=== PATIENT | male | born 1980 | race Caucasian/White ===

== ENCOUNTER 2016-04-21 22:40 | Emergency (ER) | payer BC, OTHER ==
[2016-04-22] MEDS ORDERED: CLINDAMYCIN HCL 150 MG CAPSULE PO ONE (02:40)
--- NOTE | 2016-04-22 02:45 | ER Document Report ---
ED General - General Chief Complaint: Facial Swelling Stated Complaint: FACIAL SWELLING Notes: Patient is a 35-year-old male presents with complaints of some sensation of swelling to the just below the right jaw. No pain in the teeth. No fevers. No vomiting. No difficulty breathing. No difficulty opening his jaw. He's never had this happen before. His nose a lymph nodes anywhere else on his body. He has no chronic medical problems. He takes no medications. No other complaints at this time. TRAVEL OUTSIDE OF THE [place] IN LAST 30 DAYS: No - Related Data Allergies/Adverse Reactions: Penicillins Allergy (Verified 04/21/16 22:53) Past Medical History - Social History Smoking Status: Never Smoker Frequency of alcohol use: None Drug Abuse: None Family History: Reviewed & Not Pertinent Patient has suicidal ideation: No Patient has homicidal ideation: No Review of Systems - Review of Systems Notes: My Normal Review Basic REVIEW OF SYSTEMS: CONSTITUTIONAL : Denies fever, chills, or sweats. Denies recent illness. EENT: Denies eye, ear, throat, or mouth pain or symptoms. Denies nasal or sinus congestion.. RESPIRATORY: Denies cough, cold, or chest congestion. Denies shortness of breath, difficulty breathing, or wheezing. GASTROINTESTINAL: Denies abdominal pain. Denies nausea, vomiting, or diarrhea. Denies constipation. Last BM: MUSCULOSKELETAL: Denies neck or back pain or joint pain or swelling. SKIN: Denies rash or skin lesions. LYMPHATIC: Swelling below the right jaw. NEUROLOGICAL: Denies altered mental status or loss of consciousness. Denies headache. Denies weakness or paralysis or loss of use of either side. Denies problems with gait or speech. Denies sensory or motor loss. ALL OTHER SYSTEMS REVIEWED AND NEGATIVE. Physical Exam - Vital signs Vitals: Temp Pulse Resp BP Pulse Ox 98.1 F 117 H 20 179/110 H 96 04/21/16 22:46 04/21/16 22:46 04/21/16 22:46 04/21/16 22:46 04/21/16 22:46 - Notes Notes: General Appearance: Well nourished, alert, cooperative, no acute distress, no obvious discomfort. Well-appearing. Vitals: reviewed, See vital signs table. Head: no swelling or tenderness to the head Eyes: PERRL, EOMI, Conjuctiva clear Mouth: No decreasd moisture. Patient is able open and close his jaw without any difficulties. Throat: No tonsillar inflammation, No airway obstruction, patient has easily palpable lymph nodes below the right mandible. No significant amount of swelling. Neck: Supple, no neck tenderness, No thyromegaly Skin: warm, dry, appropriate color, no rash Neuro: speech clear, oriented x 3, normal affect, responds appropriately to questions. Course - Vital Signs Vital signs: Temp Pulse Resp BP Pulse Ox 99.1 F 114 H 18 153/102 H 95 04/22/16 02:02 04/22/16 02:02 04/22/16 02:02 04/22/16 02:02 04/22/16 02:02 - Transfer of Care Notes: 04/22/16 02:43 The area that the patient feels his swollen neck she does feels like enlarged lymph nodes below the right mandible. Correlate with possible tooth infection. Denies any dental fractures or dental abscesses on exam oral exam. I will place him on clindamycin. She has no signs of Noble angina. He has no actual swelling currently. No enlargement of see his lymph nodes themselves. He's able open and close his jaw without difficulty. He looks well. I did feel the axillary and clavicle areas. I did not feel any further lymphadenopathy. I did inform the patient that if the lymph node enlargement does not improve after antibiotics must return to ER follow-up with primary care doctor for evaluation. I informed him this is very important and sometimes will start enlargement, although rare, could represent underlying cancer a foam a. Patient is understanding with this and does agree with the plan. He's encouraged return to ER immediately if he has increased swelling, fevers, any difficulty breathing, or any difficulty opening or closing the jaw. Patient agrees with plan will be discharged home. Dictation of this chart was performed using voice recognition software; therefore, there may be some unintended grammatical errors. Discharge - Discharge Clinical Impression: Lymphadenopathy of head and neck region Condition: Good Disposition: HOME, SELF-CARE Additional Instructions: You have palpable enlarged lymph nodes on the right side her jaw. This sometimes can indicate a tooth infection. We'll place you on antibiotics. If you still have any swelling after the antibiotic course is complete you must return to ER or follow up with another doctor for reevaluation. Please return to ER immediately if you have difficulty breathing, difficulty swallowing, fevers, or increased swelling. Prescriptions: Clindamycin HCl 300 mg PO ASDIR #56 capsule Forms: Return to Work
[2016-04-22 03:01] VITALS: BP 170/110
== END 2016-04-22 02:58 | disposition home or self-care (01) ==
LOC: ER 22:40
DX: R59.0 Localized enlarged lymph nodes (principal); Z88.0 Allergy status to penicillin
CPT/HCPCS: 99283

== ENCOUNTER → 2016-09-28 | Outpatient (CLI) | payer SELFPAY ==
[2016-09-28 13:35] LABS: ALBUMIN 3.7 g/dL (3.5-5.0); ANION GAP 11 (5-19); BLOOD UREA NITROGEN 13 mg/dL (7-20); CALCIUM 9.3 mg/dL (8.4-10.2); CARBON DIOXIDE 26 mmol/L (22-30); CHLORIDE 100 mmol/L (98-107); CREATININE RESULT 0.73 mg/dL (0.52-1.25); GLUCOSE 234 mg/dL (75-110); POTASSIUM 4.5 mmol/L (3.6-5.0); SODIUM 137.1 mmol/L (137-145)
[2016-09-28 15:11] LABS: URINE CREATININE 37.7 mg/dL (24-392)
[2016-09-28 15:17] LABS: CREATININE 0.73 mg/dL (0.52-1.25)
[2016-09-28 15:26] LABS: URINE PROTEIN 237.7 mg/dL (<12)
[2016-09-29 16:39] LABS: A/G RATIO 0.8 (0.7-1.7); ALBUMIN 2 2.9 g/dL (2.9-4.4); ALPHA-1-GLOBULIN 2 0.2 g/dL (0.0-0.4); GAMMA GLOBULIN 1.1 g/dL (0.4-1.8); PROTEIN TOTAL SERUM 6.4 g/dL (6.0-8.5)
== END ==
LOC: OD 10:53
PROVIDERS: ATTEND Internal Medicine Nephrology
DX: R80.9 Proteinuria, unspecified (principal); E11.9 Type 2 diabetes mellitus without complications
CPT/HCPCS: 36415; 80048; 82040; 82575; 84156; 84165

== ENCOUNTER 2016-11-10 05:32 | Day surgery (SDC) | payer OTHER ==
[2016-11-10 05:56] LABS: HEMATOCRIT 41.4 % (37.9-51.0); HEMOGLOBIN 14.4 g/dL (13.5-17.0); HGB HCT DIFFERENCE 1.8; MEAN CORPUSCULAR HEMOGLOBIN 29.9 pg (27.0-33.4); MEAN CORPUSCULAR HGB CONC 34.9 g/dL (32.0-36.0); MEAN CORPUSCULAR VOLUME 86 fl (80-97); RED BLOOD COUNT 4.84 10^6/uL (4.35-5.55); RED CELL DISTRIBUTION WIDTH 13.1 % (11.5-14.0); WHITE BLOOD COUNT 12.2 10^3/uL (4.0-10.5)
[2016-11-10 05:59] LABS: PROTHROMBIN TIME 12.5 SEC (11.4-15.4)
[2016-11-10 06:00] LABS: PARTIAL THROMBOPLASTIN TIME 29.4 SEC (23.5-35.8)
[2016-11-10 06:10] LABS: BLOOD UREA NITROGEN 16 mg/dL (7-20); CREATININE RESULT 0.71 mg/dL (0.52-1.25)
[2016-11-10] MEDS ORDERED: FENTANYL CITRATE INJ/PF 100 MCG/2 ML AMPUL ONE (08:31)
[2016-11-10] MEDS ORDERED: MIDAZOLAM 2 MG/2 ML INJ ONE (08:31)
--- NOTE | 2016-11-10 10:38 | RADIOLOGY REPORT (SQ) ---
EXAM DESCRIPTION: CT BIOPSY RENAL; CT NEEDLE PLACEMENT COMPLETED DATE/TIME: 11/10/2016 9:18 am REASON FOR STUDY: PROTEINURIA; PROTEINURIA, RENAL BIOPSY R80.9 COMPARISON: None. RADIATION DOSE: Up-to-date CT equipment and radiation dose reduction techniques were employed. CTDIv ol: 4.0 - 20.2 mGy. DLP: 956 mGy-cm. mGy. LIMITATIONS: None. PROCEDURE: Procedure was discussed with the patient and the patient agreed to the procedure. Preliminary CT scanning to localize the biopsy site was performed. A site was marked on the right ki dney and time out was performed. Procedure was performed using CT fluoroscopy. Total exposure time: 4.8 seconds. IV sedation was administered and physician direction by the registered nurse using 1 milligrams of Ve rsed and 50 micrograms of fentanyl. Physiologic monitoring was provided before, during, and after sed ation. The total sedation time was 30 minutes. Documentation face to face time, the performing proceduralist, spent monitoring the patient: 15minute s. After sterile skin prep, local lidocaine for skin and deep tissue anesthesia, the right kidney was lo calized. A coaxial 18 gauge needle was used to obtain several cores of tissue from the right kidney. The biopsy tract was embolized with Gelfoam. All CT scanners at this facility use dose modulation, iterative reconstruction, and/or weight based d osing when appropriate to reduce radiation dose to as low as reasonably achievable (ALARA). [facility]: Dose Right [facility]: CareDose [facility]: Dose Right [facility]: Teradose 4D [facility]: Smart kwiry FINDINGS: There were no immediate complications. Pathology is pending at the time of dictation. IMPRESSION: CT GUIDED RIGHT KIDNEY CORTICAL BIOPSY. COMMENT: Patient medication list reviewed:Yes- Quality ID# [id number]:Eligible professional attests to docu menting in the medical record they obtained, updated, or reviewed the patient's current medications.. TECHNICAL DOCUMENTATION: JOB ID: [id number] Quality ID #[id number]: Final reports for procedures using fluoroscopy that document radiation exposure rola casimiro, or exposure time and number of fluorographic images (if radiation exposure indices are not avail able) Quality ID # [id number]: Final reports with documentation of one or more dose reduction techniques (e.g., Au tomated exposure control, adjustment of the mA and/or kV according to patient size, use of iterative reconstruction technique) 2010 [employer]- All Rights Reserved
--- NOTE | 2016-11-10 10:38 | RADIOLOGY REPORT (SQ) ---
EXAM DESCRIPTION: CT BIOPSY RENAL; CT NEEDLE PLACEMENT COMPLETED DATE/TIME: 11/10/2016 9:18 am REASON FOR STUDY: PROTEINURIA; PROTEINURIA, RENAL BIOPSY R80.9 COMPARISON: None. RADIATION DOSE: Up-to-date CT equipment and radiation dose reduction techniques were employed. CTDIv ol: 4.0 - 20.2 mGy. DLP: 956 mGy-cm. mGy. LIMITATIONS: None. PROCEDURE: Procedure was discussed with the patient and the patient agreed to the procedure. Preliminary CT scanning to localize the biopsy site was performed. A site was marked on the right ki dney and time out was performed. Procedure was performed using CT fluoroscopy. Total exposure time: 4.8 seconds. IV sedation was administered and physician direction by the registered nurse using 1 milligrams of Ve rsed and 50 micrograms of fentanyl. Physiologic monitoring was provided before, during, and after sed ation. The total sedation time was 30 minutes. Documentation face to face time, the performing proceduralist, spent monitoring the patient: 15minute s. After sterile skin prep, local lidocaine for skin and deep tissue anesthesia, the right kidney was lo calized. A coaxial 18 gauge needle was used to obtain several cores of tissue from the right kidney. The biopsy tract was embolized with Gelfoam. All CT scanners at this facility use dose modulation, iterative reconstruction, and/or weight based d osing when appropriate to reduce radiation dose to as low as reasonably achievable (ALARA). [facility]: Dose Right [facility]: CareDose [facility]: Dose Right [facility]: Teradose 4D [facility]: Smart CardStar FINDINGS: There were no immediate complications. Pathology is pending at the time of dictation. IMPRESSION: CT GUIDED RIGHT KIDNEY CORTICAL BIOPSY. COMMENT: Patient medication list reviewed:Yes- Quality ID# [id number]:Eligible professional attests to docu menting in the medical record they obtained, updated, or reviewed the patient's current medications.. TECHNICAL DOCUMENTATION: JOB ID: [id number] Quality ID #[id number]: Final reports for procedures using fluoroscopy that document radiation exposure rola casimiro, or exposure time and number of fluorographic images (if radiation exposure indices are not avail able) Quality ID # [id number]: Final reports with documentation of one or more dose reduction techniques (e.g., Au tomated exposure control, adjustment of the mA and/or kV according to patient size, use of iterative reconstruction technique) 2010 [employer]- All Rights Reserved
[2016-11-10 12:04] VITALS: BP 138/90
== END 2016-11-10 11:45 | disposition home or self-care (01) ==
LOC: RAD 05:32
PROVIDERS: ATTEND Internal Medicine Nephrology
PROC: 0TB33ZX Excision of Right Kidney Pelvis, Percutaneous Approach, Diagnostic (ICD-10-PCS; principal; 2016-11-10)
DX: I12.0 Hypertensive chronic kidney disease with stage 5 chronic kidney disease or end stage renal disease (principal); E11.22 Type 2 diabetes mellitus with diabetic chronic kidney disease; N18.6 End stage renal disease; R80.9 Proteinuria, unspecified; E78.5 Hyperlipidemia, unspecified; I10 Essential (primary) hypertension; Z79.4 Long term (current) use of insulin; Z79.82 Long term (current) use of aspirin; Z79.899 Other long term (current) drug therapy; Z88.0 Allergy status to penicillin
CPT/HCPCS: 36415; 84520; 82565; 82947; 85027; 85610; 85730; 88346; 88348 ×2; 88313 ×2; 77012; 50200; J2250; J3010

== ENCOUNTER 2018-02-10 20:01 | Emergency (ER) | payer OTHER ==
[2018-02-10] MEDS ORDERED: PIPERACILLIN/TAZOBACTAM 4.5 GM VIAL IV ONE (23:23)
[2018-02-10] MEDS ORDERED: VANCOMYCIN HCL INJ 1000 MG VIAL IV ONE (23:24)
[2018-02-10] MEDS ORDERED: HYDROMORPHONE HCL INJ/PF 2 MG/ML AMPULE IV ONE (23:35)
--- NOTE | 2018-02-10 23:39 | ER Document Report ---
ED General - General Chief Complaint: Testicular Pain Stated Complaint: FINGER PAIN Time Seen by Provider: 02/10/18 23:17 Notes: Patient is a 37-year-old male who presents with complaint of swelling of the testicle region. He says that he was told he had a yeast infection last week. He was given a dose of Diflucan. He noticed in the last 24 hours of his testicles have been swelling and he is having some increasing pain in his penile region. He says he cannot actually see his penis he does not know when the purulent drainage started from around the penis. He denies any fevers. Some nausea. No vomiting. No abdominal pain. No diarrhea. Patient's only other complaint is that he has a pustule on the pad of the index finger of the left hand. He said this is from where they checked his blood sugar urgent care a few days ago. No history of genital herpes. Patient has not been sexually active in several months and at that time was sexually monogamous with fiance. TRAVEL OUTSIDE OF THE [place] IN LAST 30 DAYS: No - Related Data Allergies/Adverse Reactions: Penicillins Allergy (Verified 04/21/16 22:53) Past Medical History - Social History Smoking Status: Never Smoker Chew tobacco use (# tins/day): No Frequency of alcohol use: None Drug Abuse: None Family History: Reviewed & Not Pertinent Patient has suicidal ideation: No Patient has homicidal ideation: No - Past Medical History Cardiac Medical History: Reports: Hx Hypertension Denies: Hx Coronary Artery Disease, Hx Heart Attack Pulmonary Medical History: Denies: Hx Asthma, Hx Bronchitis, Hx COPD, Hx Pneumonia Neurological Medical History: Denies: Hx Cerebrovascular Accident, Hx Seizures Renal/ Medical History: Denies: Hx Peritoneal Dialysis Musculoskeletal Medical History: Reports Hx Arthritis Past Surgical History: Reports: Hx Orthopedic Surgery - R Arm Review of Systems - Review of Systems Notes: My Normal Review Basic REVIEW OF SYSTEMS: CONSTITUTIONAL : Denies fever, chills, or sweats. Denies recent illness. RESPIRATORY: Denies cough, cold, or chest congestion. Denies shortness of breath, difficulty breathing, or wheezing. GASTROINTESTINAL: Denies abdominal pain. Denies nausea, vomiting, or diarrhea. GENITOURINARY: Denies difficulty urinating, painful urination, burning, frequency, or blood in urine. Complains of some swelling to testicular region. MUSCULOSKELETAL: Denies neck or back pain or joint pain or swelling. SKIN: Denies rash or skin lesions. NEUROLOGICAL: Denies altered mental status or loss of consciousness. ALL OTHER SYSTEMS REVIEWED AND NEGATIVE. Physical Exam - Vital signs Vitals: Temp Pulse Resp BP Pulse Ox 98.6 F 115 H 20 134/83 H 95 02/10/18 20:14 02/10/18 20:14 02/10/18 20:14 02/10/18 20:14 02/10/18 20:14 - Notes Notes: General Appearance: Well nourished, alert, cooperative, no acute distress, mild to moderate obvious discomfort. Vitals: reviewed, See vital signs table. Eyes: PERRL, EOMI, Conjuctiva clear Mouth: No decreasd moisture Lungs: No wheezing, No rales, No rhonci, No accessory muscle use, good air exchange bilaterally. Heart: Normal rate, Regular rythm, No murmur, no rub Abdomen: Normal BS, soft, No rigidity, No abdominal tenderness, No guarding, no rebound, no abdominal masses, no organomegaly genital: Patient has some redness and swelling to the scrotal region. His penile shaft is swollen and there is a large amount of skin breakdown with purulent drainage coming from the penile shaft itself. Glans is red and inflamed as well. Extremities: good pulses in all extremities, no swelling or tenderness in the extremities, no edema. Skin: warm, dry, appropriate color, no rash Neuro: speech clear, oriented x 3, normal affect, responds appropriately to questions. Course - Re-evaluation Re-evalutation: 02/10/18 23:40 Patient has what appears to be a scrotal cellulitis but also has infection involving the shaft of the penis and also to the glans. He purulent discharge. He has no crepitance or pain palpation to the pelvic region. I did call out general surgeon, Dr. Khan, who says that he is not qualified to do surgery in the genital region. He recommends transfer for urology. Only replacing lining obtaining blood work as well as give the patient IV antibiotics. I will call outside facilities to discuss possible transfer. I informed patient and plan is agreeable to it. Patient has penicillins in his allergy list however the patient says he had a rash when he was just a young child to penicillin. Since then he has had amoxicillin several times without any reaction. I therefore feel that Zosyn is appropriate. 02/11/18 00:42 I have called to [facility] transfer line. I got the voice messaging system to him and asked me to leave a message. I have left a message. If I do not hear back within 10 more minutes and I will call again. 02/11/18 00:53 [facility] call back and spoke with with ask about different patient. They are currently full and do not have any beds and have a long wait list. I therefore called [facility] and said they will call us back with urology. 02/11/18 01:[address] Dominguez, urologist at [facility], who agrees that the patient needs to be transferred and seen by him. He requested I speak with the hospitalist for excepting for transfer and then they will have the patient transferred for definitive treatment. I am waiting to hear back from the hospitalist at [facility]. 02/11/18 01:[address] speak with Dr. Villalta, hospitalist, who agrees to accept the patient. They said that they should have a bed sometime earlier today. I did not called [facility] as my coworker physician just tried to called [facility] about another urology patient and they were also full and on a long bed delay as well. This leaves us with [facility] says they will hopefully have a bed within the next 12 hours. I will continue to reevaluate the patient to make sure he does not have any spreading redness or swelling to the genital region. Patient's vital signs remained stable. His rate is currently 99. Blood pressure is 135/95. Is not septic or toxic appearing however the patient's exam was still very concerning and I feel that he would benefit more from my work quick urologic evaluation. He has purulent drainage coming from around the penile region. He still start having the redness spread from genital region. I called [facility] again and asked if they would just let me speak with urologist to see if I can get this patient faster help. The transfer center said they would contact the urologist and have him speak with me. 02/11/18 02:00 02/11/18 02:05 02/11/18 02:06 02/11/18 02:[address] Mcduffie, urologist at [facility], and explained to him my concern that the patient has worsening infection of the genitalia and that this could progress to him potentially losing his genitalia if not treated. He agrees that patient does need to be seen. He recommends obtaining a CT scan while awaiting bed for the patient be transferred. He also recommends I speak with the hospitalist as about being the primary locomotive switch operator for the patient. I am awaiting hear back from the hospitalist. 02/11/18 02:22 02/11/18 02:[address] Bonilla, hospitalist, who agrees to accept the patient for transfer. 02/11/18 03:29 [facility] has assigned us a bed. We are arranging transport for patient to go to [facility] for further treatment. 02/11/18 08:53 I did do a final evaluation right as transport team and arrived. Patient was feeling well and is not septic or toxic appearing. He is stable for transfer. Vital signs are stable. Blood pressure is normal. Dictation of this chart was performed using voice recognition software; therefore, there may be some unintended grammatical errors. - Vital Signs Vital signs: Temp Pulse Resp BP Pulse Ox 100.0 F 106 H 20 154/98 H 94 02/11/18 05:35 02/11/18 02:16 02/11/18 05:35 02/11/18 05:35 02/11/18 05:35 - Laboratory Result Diagrams: 02/10/18 23:40 02/10/18 23:40 Laboratory results interpreted by me: 02/10/18 02/10/18 23:40 23:40 WBC 14.2 H Hgb 13.0 L Hct 37.6 L Lymphocytes % 11.9 L Basophils % 2.1 H Absolute Neutrophils 11.0 H Absolute Basophils 0.3 H Sodium 131.8 L Potassium 3.3 L Chloride 91 L Glucose 294 H Discharge - Discharge Clinical Impression: Genital infection Condition: Stable Disposition: [facility] Referrals: AYANA MANZANARES, OPTICS ENGINEER [Primary Care Provider] - Follow up as needed
[2018-02-11 00:05] LABS: ABSOLUTE BASOPHILS # (AUTO) 0.3 10^3/uL (0.0-0.2); ABSOLUTE EOSINOPHILS # (AUTO) 0.1 10^3/uL (0.0-0.6); ABSOLUTE LYMPHOCYTES (AUTO) 1.7 10^3/uL (0.5-4.7); ABSOLUTE MONOCYTES (AUTO) 1.1 10^3/uL (0.1-1.4); BASOPHILS % (AUTO) 2.1 % (0-2); EOSINOPHILS % (AUTO) 0.5 % (0-6); HEMATOCRIT 37.6 % (37.9-51.0); LYMPHOCYTES % (AUTO) 11.9 % (13-45); MEAN CORPUSCULAR HEMOGLOBIN 29.4 pg (27.0-33.4); MEAN CORPUSCULAR HGB CONC 34.5 g/dL (32.0-36.0); MEAN CORPUSCULAR VOLUME 85 fl (80-97); MONOCYTES % (AUTO) 8.1 % (3-13); PLATELET COUNT 218 10^3/uL (150-450); RED BLOOD COUNT 4.42 10^6/uL (4.35-5.55); RED CELL DISTRIBUTION WIDTH 13.6 % (11.5-14.0); SEGMENTED NEUTROPHILS % (AUTO) 77.4 % (42-78); TOTAL CELLS COUNTED % (AUTO) 100 %; WHITE BLOOD COUNT 14.2 10^3/uL (4.0-10.5)
[2018-02-11 00:25] LABS: ANION GAP 13 (5-19); BLOOD UREA NITROGEN 14 mg/dL (7-20); CALCIUM 8.7 mg/dL (8.4-10.2); CARBON DIOXIDE 28 mmol/L (22-30); CHLORIDE 91 mmol/L (98-107); GLUCOSE 294 mg/dL (75-110); POTASSIUM 3.3 mmol/L (3.6-5.0); SODIUM 131.8 mmol/L (137-145)
--- NOTE | 2018-02-11 03:02 | RADIOLOGY REPORT (SQ) ---
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 TECHNICAL DATA: Axial CT imaging of the pelvis was performed following the administration of intravenous contrast. Sagittal and coronal reconstructed images were then performed. The CT study is performed according to ALARA (as low as reasonably achievable) or ALARA/IMAGE GENTLY, with automatic adjustment of mA and/or kV according to patient size. Comparison: None FINDINGS: Bowel:The visualized bowel gas pattern is non specific and non obstructive. Appendix: The appendix is normal. Free air:There is no evidence of free air. Free fluid: There is no evidence of free fluid. Vasculature: The iliac arteries are unremarkable. Lymphadenopathy: No pathologic lymphadenopathy is identified. There are mildly prominent bilateral inguinal lymph nodes slightly greater on the left. Bladder: The bladder is well distended and smooth in contour. Reproductive: The prostate gland is grossly within normal limits. There is fluid in the scrotal sac which may reflect bilateral hydroceles. Bones: No acute osseous abnormalities are identified. Soft tissues: There appears to be very mild edema along the distal dorsal aspect of the penis. IMPRESSION: 1. Normal contrast-enhanced CT scan of the pelvis. 2. Mildly prominent bilateral inguinal lymph nodes slightly greater on the left. 3. Suspect bilateral hydroceles. 4. There appears to be very mild edema along the distal dorsal aspect of the penis.
[2018-02-11 05:38] VITALS: BP 154/98
== END 2018-02-11 05:50 | disposition short-term general hospital (02) ==
LOC: ER 20:01
DX: N49.2 Inflammatory disorders of scrotum (principal); N48.29 Other inflammatory disorders of penis; I10 Essential (primary) hypertension; Z88.0 Allergy status to penicillin
CPT/HCPCS: 99285; 96375; 96365; 96366; 96367; 36415; 87040; 85025; 80048; 72193; J1170; J3370; J2543

== ENCOUNTER 2018-06-29 09:13 | Day surgery (SDC) | payer OTHER ==
[2018-06-29] MEDS ORDERED: PROPOFOL INJ 200 MG/20 ML VIAL IV ONE ×2 (11:29→12:05)
[2018-06-29] MEDS ORDERED: MORPHINE SULFATE 10 MG/ML INJ IV PRN (12:11)
[2018-06-29] MEDS ORDERED: PROMETHAZINE HCL INJ 25 MG/1 ML VIAL IV PRN ×2 (12:11)
[2018-06-29] MEDS ORDERED: FENTANYL CITRATE INJ/PF 100 MCG/2 ML AMPUL IV PRN ×3 (12:11)
[2018-06-29] MEDS ORDERED: MEPERIDINE HCL/PF INJ 25 MG/1 ML DISP.SYRIN IV PRN (12:11)
[2018-06-29] MEDS ORDERED: DIPHENHYDRAMINE HCL 50 MG/ML VIAL IV PRN (12:11)
--- NOTE | 2018-06-29 12:41 | Operative Report ---
Operative Report DATE OF SURGERY: 06/29/18 Operative Report: The risks benefits and alternatives of the procedure explained to the patient in detail and informed consent is obtained.A GIF Olympus video scope was inserted into the patient's mouth and hypopharynx ,the esophagus is identified intubated and insufflated, the scope was then advanced through the esophagus stomach and duodenum, retroflexion maneuver is done, the esophagus stomach and first and second portions of the duodenum examined. PREOPERATIVE DIAGNOSIS: Dysphagia POSTOPERATIVE DIAGNOSIS: Esophageal rings noted status post biopsy rule out eosinophilic esophagitis. Esophagitis with possible Schatzki's ring this was broken. Gastritis status post biopsy rule out Helicobacter pylori OPERATION: EGD with biopsy SURGEON: NASH HANNAH ANESTHESIA: LMAC TISSUE REMOVED OR ALTERED: As noted above. COMPLICATIONS: None. ESTIMATED BLOOD LOSS: None. INTRAOPERATIVE FINDINGS: As noted above. PROCEDURE: Patient tolerated the procedure well. No immediate postprocedure comp occasions are noted. Patient discharged in good condition. Discharge date 06/29/2018. Discharge diet: Regular. Discharge activity: Regular. 2-3-week follow-up to discuss findings. Patient is instructed to call the office or proceed to the emergency room should there be any further problems or questions. Wait on the pathology.
[2018-06-29 12:56] VITALS: BP 166/98
== END 2018-06-29 13:00 | disposition home or self-care (01) ==
LOC: OROUT 09:13
PROVIDERS: ATTEND Internal Medicine Gastroenterology
DX: K29.50 Unspecified chronic gastritis without bleeding (principal); K20.9 Esophagitis, unspecified; I10 Essential (primary) hypertension; E11.9 Type 2 diabetes mellitus without complications; Z79.84 Long term (current) use of oral hypoglycemic drugs; Z79.899 Other long term (current) drug therapy; Z79.82 Long term (current) use of aspirin; Z88.0 Allergy status to penicillin
CPT/HCPCS: 43239; 82962; 88305 ×2; J2704; 731

== ENCOUNTER 2018-11-27 23:41 | Emergency (ER) | payer OTHER ==
--- NOTE | 2018-11-28 01:45 | ER Document Report ---
ED General - General Chief Complaint: Back Pain Stated Complaint: BACK PAIN Time Seen by Provider: 11/28/18 01:27 Primary Care Provider: AYANA MANZANARES NP [NO LOCAL MD] - Follow up in 1 week Mode of Arrival: Ambulatory Information source: Patient Notes: This 38-year-old male presents emergency department with complaints of back pain for the past 3 to 4 weeks. Patient denies injury admits to falling 1-11/2 weeks prior to the back pain onto his knees. He denies urinary bowel incontinence or retention. Reports last bowel movement was today and was normal. Denies numbness or tingling. Patient reports he has been to see a primary care provider at [facility] for this back pain a week ago. He reports they just wanted to address his high blood pressure. He was told that the back pain was due to his high blood pressure. He is now on medication for that and his still having high blood pressure. Patient reports his biggest concern is his father was diagnosed with back cancer in 2015 and is now paralyzed. He reports his fathers back was hurting in the same area that his back now hurts. Patient [place] and is aware of all the issues with cancer. He denies steroids. Denies history of IV drug use. Also complains of joint pain for over a year. Reports he has been to a provider about the joint pain also. TRAVEL OUTSIDE OF THE [place] IN LAST 30 DAYS: No - HPI Onset: Other Onset/Duration: Persistent Quality of pain: Achy Severity: Severe Pain Level: 4 Associated symptoms: None Exacerbated by: Denies Relieved by: Denies Similar symptoms previously: Yes Recently seen / treated by doctor: Yes - Related Data Allergies/Adverse Reactions: Penicillins Allergy (Unknown, Verified 06/29/18 09:26) Past Medical History - General Information source: Patient - Social History Smoking Status: Unknown if Ever Smoked Cigarette use (# per day): No Frequency of alcohol use: None Drug Abuse: None Occupation: [employer] Lives with: Family Family History: Reviewed & Not Pertinent Patient has suicidal ideation: No Patient has homicidal ideation: No - Past Medical History Cardiac Medical History: Reports: Hx Hypertension Denies: Hx Coronary Artery Disease, Hx Heart Attack Pulmonary Medical History: Denies: Hx Asthma, Hx Bronchitis, Hx COPD, Hx Pneumonia Neurological Medical History: Denies: Hx Cerebrovascular Accident, Hx Seizures Endocrine Medical History: Reports: Hx Diabetes Mellitus Type 2 Renal/ Medical History: Denies: Hx Peritoneal Dialysis Musculoskeletal Medical History: Reports Hx Arthritis Past Surgical History: Reports: Hx Orthopedic Surgery - R Arm - Immunizations Hx Diphtheria, Pertussis, Tetanus Vaccination: Yes Review of Systems - Review of Systems Notes: Review HPI for review of systems., All other systems negative Physical Exam - Vital signs Vitals: Temp Pulse Resp BP Pulse Ox 98.2 F 106 H 18 172/112 H 96 11/27/18 23:59 11/27/18 23:59 11/27/18 23:59 11/27/18 23:59 11/27/18 23:59 - General General appearance: Alert In distress: None - HEENT Head: Normocephalic, Atraumatic Eyes: Normal Conjunctiva: Normal Neck: Normal, Supple. No: Lymphadenopathy - Respiratory Respiratory status: No respiratory distress Chest status: Nontender Breath sounds: Normal Chest palpation: Normal - Cardiovascular Rhythm: Regular Heart sounds: Normal auscultation Murmur: No - Abdominal Inspection: Normal Distension: No distension Bowel sounds: Normal Tenderness: Nontender - Back Back: Normal, Tender - Complains of thoracic back pain, no obvious deformity good reflexes no weakness good distal movement and sensation no erythema no swelling no warmth - Extremities General upper extremity: Normal ROM General lower extremity: Normal ROM, Normal weight bearing - Neurological Neuro grossly intact: Yes Cognition: Normal Orientation: AAOx4 [place] Coma Scale Eye Opening: Spontaneous [place] Coma Scale Verbal: Oriented Malika Coma Scale Motor: Obeys Commands Malika Coma Scale Total: 15 Speech: Normal Cerebellar coordination: Normal Motor strength normal: LUE, RUE, LLE, RLE Sensory: Normal - Psychological Associated symptoms: Normal affect, Normal mood - Skin Skin Temperature: Warm Skin Moisture: Dry Skin Color: Normal Course - Re-evaluation Re-evalutation: 11/28/18 01:51 8-year-old male that presents with complaints of back pain for the past 3 to 4 weeks. Patient denies injury. Denies urinary bowel incontinence or retention. Denies paresthesia. Patient reports that his father was diagnosed with back cancer in 2016. He is worried that he may have cancer because he is having pain in the same area that his father did. Patient also complains of joint pain for over a year. Patient reports he has a history of high blood pressure and diabetes. 11/28/18 07:[address] Patient instructed on negative CT. Instructed follow-up with his primary care provider take Motrin as indicated for the pain he verbalized understanding to all instructions Dictation of this chart was performed using voice recognition software; therefore, there may be some unintended grammatical errors. Thoracic Spine CT 11/28/18 01:39 IMPRESSION: No acute abnormality. - Vital Signs Vital signs: Temp Pulse Resp BP Pulse Ox 98.4 F 96 18 168/104 H 99 11/28/18 03:58 11/28/18 03:58 11/28/18 03:58 11/28/18 03:58 11/28/18 03:58 - Diagnostic Test Radiology reviewed: Image reviewed Discharge - Discharge Clinical Impression: Back pain Qualifiers: Back pain location: thoracic back pain Chronicity: chronic Back pain laterality: bilateral Qualified Code(s): M54.6 - Pain in thoracic spine Condition: Stable Disposition: HOME, SELF-CARE Instructions: Use of Vxub-Hnt-Qhezvnw Ibuprofen ([facility]) Additional Instructions: *You have been evaluated for back pain *Take ibuprofen as indicated *Avoid heavy lifting *Follow up with your primary care provider within one week for recheck *Return to ED for worsening condition, changes, needs Forms: Parent Work Note Referrals: AYANA MANZANARES NP [NO LOCAL MD] - Follow up in 1 week
--- NOTE | 2018-11-28 03:34 | RADIOLOGY REPORT (SQ) ---
CT thoracic spine without contrast on 11/28/2018 at 1:51 AM CLINICAL INDICATION: Back pain, family history of cancer TECHNIQUE: Multiple axial images are obtained throughout the thoracic spine without the administration of contrast. Sagittal and coronal reformatted images are also performed and reviewed. This exam was performed according to our departmental dose-optimization program, which includes automated exposure control, adjustment of the mA and/or kV according to patient size and/or use of iterative reconstruction technique. Total DLP is 2287.25 mGy*cm. COMPARISON: None FINDINGS: There is slight dextroscoliosis of the thoracic spine. Reformatted images reveal otherwise normal alignment of the thoracic spine. There are no acute fracture lines. No definite disc herniation is noted. No level of canal stenosis or foraminal narrowing is noted. No lytic or sclerotic lesion is noted. IMPRESSION: No acute abnormality.
[2018-11-28 03:58] VITALS: BP 168/104
== END 2018-11-28 04:00 | disposition home or self-care (01) ==
LOC: ER 23:41
DX: M54.6 Pain in thoracic spine (principal); M54.9 Dorsalgia, unspecified; W19.XXXA Unspecified fall, initial encounter; I10 Essential (primary) hypertension; Z80.8 Family history of malignant neoplasm of other organs or systems; M25.50 Pain in unspecified joint; E11.9 Type 2 diabetes mellitus without complications
CPT/HCPCS: 72128; 99283

== ENCOUNTER 2019-09-16 18:34 | Emergency (ER) | payer OTHER ==
--- NOTE | 2019-09-16 19:16 | ER Document Report ---
ED Medical Screen (RME) - General Chief Complaint: Back Pain Stated Complaint: BACK PAIN/HAND NUMBNESS Time Seen by Provider: 09/16/19 19:14 Primary Care Provider: MIREILLE SHAH PA-C [Primary Care Provider] - Follow up as needed Notes: This 39-year-old male has a history of back pain who presents to the ER today with palpable spasm to the entire left side of his back. He is deeply concerned because his father had cancer and he wants to be further evaluated. I greeted and performed a rapid initial assessment of this patient. Comprehensive ED assessment and evaluation of the patient, analysis of test results and completion of the medical decision making process will be conducted by additional ED providers. TRAVEL OUTSIDE OF THE [place] IN LAST 30 DAYS: No - Related Data Allergies/Adverse Reactions: Penicillins Allergy (Unknown, Verified 06/29/18 09:26) Past Medical History - Past Medical History Cardiac Medical History: Reports: Hx Hypertension Denies: Hx Coronary Artery Disease, Hx Heart Attack Pulmonary Medical History: Denies: Hx Asthma, Hx Bronchitis, Hx COPD, Hx Pneumonia Neurological Medical History: Denies: Hx Cerebrovascular Accident, Hx Seizures Endocrine Medical History: Reports: Hx Diabetes Mellitus Type 2 Renal/ Medical History: Denies: Hx Peritoneal Dialysis Musculoskeltal Medical History: Reports Hx Arthritis Past Surgical History: Reports: Hx Orthopedic Surgery - R Arm - Immunizations Hx Diphtheria, Pertussis, Tetanus Vaccination: Yes Physical Exam - Vital signs Vitals: Temp Pulse Resp BP Pulse Ox 98.0 F 113 H 16 207/112 H 98 09/16/19 18:44 09/16/19 18:44 09/16/19 18:44 09/16/19 18:44 09/16/19 18:44 Course - Vital Signs Vital signs: Temp Pulse Resp BP Pulse Ox 98.0 F 113 H 16 207/112 H 98 09/16/19 18:44 09/16/19 18:44 09/16/19 18:44 09/16/19 18:44 09/16/19 18:44 Doctor's Discharge - Discharge Referrals: MIREILLE SHAH PA-C [Primary Care Provider] - Follow up as needed
[2019-09-16 19:51] LABS: APPEARANCE,URINE CLEAR; BILIRUBIN,URINE NEGATIVE (NEGATIVE); COLOR,URINE COLORLESS; GLUCOSE, URINE >=500 mg/dL (NEGATIVE); KETONES,URINE NEGATIVE (NEGATIVE); LEUKOCYTE ESTERASE,URINE NEGATIVE (NEGATIVE); NITRITE,URINE NEGATIVE (NEGATIVE); PROTEIN,URINE 100 mg/dL (NEGATIVE); URINE SPECIFIC GRAVITY 1.026; UROBILINOGEN,URINE NEGATIVE mg/dL (<2.0)
[2019-09-16 19:57] LABS: HEMATOCRIT 42.3 % (37.9-51.0); MEAN CORPUSCULAR VOLUME 88 fl (80-97); PLATELET COUNT 251 10^3/uL (150-450); RED CELL DISTRIBUTION WIDTH 13.3 % (11.5-14.0); WHITE BLOOD COUNT 10.7 10^3/uL (4.0-10.5)
[2019-09-16 19:58] LABS: ALBUMIN 2.6 g/dL (3.5-5.0); ALKALINE PHOSPHATASE 143 U/L (38-126); ANION GAP 16 (5-19); ASPARTATE AMINO TRANSFERASE 25 U/L (17-59); BILIRUBIN,DIRECT 0.3 mg/dL (0.0-0.4); BILIRUBIN,TOTAL 0.7 mg/dL (0.2-1.3); BLOOD UREA NITROGEN 18 mg/dL (7-20); CALCIUM 8.7 mg/dL (8.4-10.2); CARBON DIOXIDE 16 mmol/L (22-30); CHLORIDE 92 mmol/L (98-107); POTASSIUM 4.8 mmol/L (3.6-5.0); TOTAL PROTEIN 6.8 g/dL (6.3-8.2)
[2019-09-16 20:00] LABS: URINE AMPHETAMINES SCREEN NEGATIVE; URINE BARBITURATES SCREEN NEGATIVE; URINE BENZODIAZEPINES SCREEN NEGATIVE; URINE COCAINE SCREEN NEGATIVE; URINE MARIJUANA (THC) SCREEN NEGATIVE; URINE METHADONE SCREEN NEGATIVE; URINE PHENCYCLIDINE SCREEN NEGATIVE
[2019-09-16 20:08] LABS: GLUCOSE 657 mg/dL (75-110)
[2019-09-16 20:16] LABS: HEMOGLOBIN 14.2 g/dL (13.5-17.0)
[2019-09-16 20:17] LABS: MEAN CORPUSCULAR HEMOGLOBIN 29.6 pg (27.0-33.4); MEAN CORPUSCULAR HGB CONC 33.6 g/dL (32.0-36.0)
--- NOTE | 2019-09-16 20:19 | RADIOLOGY REPORT (SQ) ---
INDICATION: pain. COMPARISON: None CORRELATION: None TECHNIQUE: Noncontrast spiral axial CT images were obtained through the lumbar spine with multiplanar reconstructions. This exam was performed according to our departmental dose-optimization program, which includes automated exposure control, adjustment of the mA and/or kV according to patient size and/or use of iterative reconstruction techniques. FINDINGS: No acute displaced fracture is identified of the lumbar spine. Alignment is anatomic. No focal alignment abnormality is identified. The intervertebral joints and facets are within normal limits, for age. L1-L2: No significant disease. L2-L3: No significant disease. L3-L4: No significant disease. L4-L5: No significant disease. L5-S1: No significant disease. Surrounding soft tissues are unremarkable. IMPRESSION: No acute bony injury is seen to the lumbar spine.
[2019-09-16 20:44] LABS: ABSOLUTE LYMPHOCYTES# (MANUAL) 2.4 10^3/uL (0.5-4.7); ABSOLUTE MONOCYTES # (MANUAL) 0.5 10^3/uL (0.1-1.4); BAND NEUTROPHILS % (MANUAL) 3 % (3-5); BASOPHILS % (MANUAL) 0 % (0-2); EOSINOPHILS % (MANUAL) 2 % (0-6); LYMPHOCYTES % (MANUAL) 22 % (13-45); MONOCYTES % (MANUAL) 5 % (3-13); SEGMENTED NEUTROPHILS % (MAN) 68 % (42-78); TOTAL CELLS COUNTED 100
[2019-09-16 20:45] LABS: PLATELET COMMENT ADEQUATE; RBC MORPHOLOGY COMMENT NORMO-CYTIC/CHROMIC
--- NOTE | 2019-09-16 20:51 | EKG REPORT ---
SEVERITY:- ABNORMAL ECG - SINUS TACHYCARDIA PROBABLE LEFT VENTRICULAR HYPERTROPHY : Confirmed by: Courtney Magdaleno 16-Sep-2019 20:50:01
--- NOTE | 2019-09-16 21:06 | ER Document Report ---
ED General - General Chief Complaint: Back Pain Stated Complaint: BACK PAIN/HAND NUMBNESS Time Seen by Provider: 09/16/19 19:14 Primary Care Provider: MIREILLE SHAH PA-C [Primary Care Provider] - Follow up as needed Notes: 39-year-old male with htn, diabetes and chronic low back pain presenting with acute exacerbation of his low back pain. Has had low back pain for approximately 1 year. He has seen [place] demo event specialist up in [place] who has provided multiple modalities for pain relief to include muscle relaxers and injections, now currently on zanaflex and pregabalin. These modalities have provided minimal to no relief for patient at this time. Last injection was approximately 2 weeks ago and he states about a day later his back pain returned. Notes concerns because his father was diagnosed with cancer who had presented with similar symptoms and his father is now paralyzed. Also reports some numbness and tingling in his entire right hand. Notes an increase in thirst and an increase in urination. Decrease in bowel movements in the last couple of days. States he typically goes multiple times a day but has only gone once in the last 2 days. Takes metformin 500 mg bid and lisinopril 40 mg. Denies any fevers, chills, headache, shortness of breath, chest pain or additional symptoms. TRAVEL OUTSIDE OF THE [place] IN LAST 30 DAYS: No - Related Data Allergies/Adverse Reactions: Penicillins Allergy (Unknown, Verified 06/29/18 09:26) Home Medications: Gabapentin. Pregabalin. Tizanidine Past Medical History - Social History Smoking Status: Never Smoker Frequency of alcohol use: Occasional Drug Abuse: None Family History: Reviewed & Not Pertinent Patient has homicidal ideation: No - Past Medical History Cardiac Medical History: Reports: Hx Hypertension Denies: Hx Coronary Artery Disease, Hx Heart Attack Pulmonary Medical History: Denies: Hx Asthma, Hx Bronchitis, Hx COPD, Hx Pneumonia Neurological Medical History: Denies: Hx Cerebrovascular Accident, Hx Seizures Endocrine Medical History: Reports: Hx Diabetes Mellitus Type 2 Renal/ Medical History: Reports: None. Denies: Hx Peritoneal Dialysis Malignancy Medical History: Reports None GI Medical History: Reports: None Musculoskeletal Medical History: Reports Hx Arthritis, Reports Hx Muscle Spasm Skin Medical History: Reports None Psychiatric Medical History: Reports: None Past Surgical History: Reports: Hx Orthopedic Surgery - R Arm - Immunizations Hx Diphtheria, Pertussis, Tetanus Vaccination: Yes Review of Systems - Review of Systems Constitutional: No symptoms reported EENT: No symptoms reported Cardiovascular: No symptoms reported Respiratory: No symptoms reported Gastrointestinal: See HPI Genitourinary: See HPI Male Genitourinary: No symptoms reported Musculoskeletal: See HPI, Back pain Skin: No symptoms reported Neurological/Psychological: Tingling Physical Exam - Vital signs Vitals: Temp 98 F 09/16/19 18:35 Interpretation: Hypertensive, Tachycardic. No: Hypoxic, Tachypneic - Notes Notes: Adult General: GENERAL: Alert, interacts well. No acute distress HEAD: Normocephalic, atraumatic EYES: Pupils equal, round and reactive to light. Extraocular movements intact. ENT: Airway patent. Nares patent. NECK: Full range of motion. Supple. Trachea midline. No lymphadenopathy. LUNGS: Clear to auscultation bilaterally, no wheezes, rales, or rhonchi. No respiratory distress. Nontender chest wall. HEART: Regular rate and rhythm. No murmurs, rubs or gallops. ABDOMEN: Soft, mild tenderness to lower right abdomen. Nondistended. Bowel sounds present in all 4 quadrants. GENITOURINARY: Deferred EXTREMITIES: Moves all 4 extremities spontaneously. No cyanosis. BACK: No cervical, thoracic, lumbar midline tenderness. Back is tender to palpation along paraspinals. Has full ROM. No saddle anesthesia, normal distal neurovascular exam. Moves all extremities with full range of motion. NEUROLOGICAL: Alert and oriented x3. Strength 5/ 5 in all extremities. PSYCH: Normal affect, normal mood. SKIN: Warm, dry, normal turgor. Few scratches on abdomen. Course - Re-evaluation Re-evalutation: 09/17/19 01:48 CT of low back shows no acute radha injuries. EKG shows sinus tachycardia, no st segment elevations or depressions. Patient reports that he has had improvement of his pain with the morphine but still continues to have some pain. Glucose is 657, corrected sodium is 124.4. No ketones in urine. Patient's PH is 7.38. Patient initially given 10 units of insulin for his elevated sugars. Sugar have decreased to the 350's. Patient continues to be hypertensive. Discussed case with Dr. Chong. As patients labs show no ketones and no acidosis do not feel that patient needs to be admitted. Dr. Chong is in agreement. He recommends starting patient on hydralazine 25 mg and 5 mg glypizide. Reassessed patient. Sugars are down in the 340s. Patient remains tachycardic. Blood pressure after hydralazine is 156/111. Patient continues to deny chest pain or headache. 09/17/19 02:19 Reassessed patient after additional pain medicine given. He reports that his pain has continued to decrease. He is comfortable going home. Patient presented with acute on chronic low back pain. Currently his blood pressure is 143/97. Recommend he follow-up with his litigation specialist. He may need a pain management referral. Also recommend patient follow-up with his primary care provider as he has asymptomatic hypertension and elevated blood sugars in the ED today and he needs follow-up for his diabetes and hypertension. He does not have a blood pressure cuff at home and checks his sugars when he remembers. Recommend patient increase dose of metformin in the am to 1000mg. Discussed with patient G I side effects of medication. He states he has experienced these symptoms before. Will also prescribe HCTZ 25 mg to help control his blood pressure. Patient acknowledges and verbalizes understanding of instructions. All questions answered. Patient may return to the emergency department if he deve lops worsening symptoms or new symptoms. 09/17/19 03:49 09/17/19 03:51 - Vital Signs Vital signs: Temp Pulse Resp BP Pulse Ox 98.0 F 113 H 16 143/97 H 92 09/16/19 18:44 09/16/19 18:44 09/17/19 02:01 09/17/19 02:01 09/17/19 02:01 - Laboratory Result Diagrams: 09/16/19 19:25 09/16/19 19:25 Laboratory results interpreted by me: 09/16/19 09/16/19 09/16/19 19:25 19:25 19:25 WBC 10.7 H Sodium 124.4 L Chloride 92 L Carbon Dioxide 16 L Glucose 657 H* POC Glucose Serum Osmolality Alkaline Phosphatase 143 H Albumin 2.6 L Urine Protein 100 H Urine Glucose (UA) >=500 H 09/16/19 09/16/19 09/16/19 19:25 22:31 23:46 WBC Sodium Chloride Carbon Dioxide Glucose POC Glucose 352 H 346 H Serum Osmolality 311 H Alkaline Phosphatase Albumin Urine Protein Urine Glucose (UA) 06/07/20 01:14 WBC Sodium Chloride Carbon Dioxide Glucose POC Glucose 334 H Serum Osmolality Alkaline Phosphatase Albumin Urine Protein Urine Glucose (UA) - EKG Interpretation by Me Additional EKG results interpreted by me: 09/17/19 03:49 Sinus tachycardia 109, [place] internval 184, qtc 453, no st segment elevations or depressions. Discharge - Discharge Clinical Impression: Elevated blood sugar Chronic back pain Qualifiers: Back pain location: low back pain Back pain laterality: bilateral Sciatica presence: with sciatica Sciatica laterality: sciatica of left side Qualified Co de(s): M54.42 - Lumbago with sciatica, left side Hypertension Qualifiers: Hypertension type: unspecified Qualified Code(s): I10 - Essential (primary) hypertension Condition: Stable Disposition: HOME, SELF-CARE Instructions: Diabetes ([facility]), High Blood Pressure ([facility]), Low Back Pain ([facility]) Prescriptions: Hydrochlorothiazide [Hydrodiuril 25 mg Tablet] 25 mg PO QAM #30 tablet Forms: Return to Work Referrals: MIREILLE SHAH PA-C [Primary Care Provider] - Follow up as needed
[2019-09-16] MEDS ORDERED: INSULIN REG, HUMAN 100 UNIT/ML 3 ML VIAL (PYX) IV ONE (21:11)
[2019-09-16] MEDS ORDERED: NORMAL SALINE 1000 ML 1,000 ML IV ONE ×2 (21:12→23:53)
[2019-09-16] MEDS ORDERED: LISINOPRIL 10 MG TABLET PO ONE (21:38)
[2019-09-16 21:41] LABS: VENOUS BLOOD BASE EXCESS 3.2 mmol/L; VENOUS BLOOD HCO3 29.2 mmol/L (20-32); VENOUS BLOOD PCO2 50.2 mmHg (35-63); VENOUS BLOOD PH 7.38 (7.30-7.42)
[2019-09-16] MEDS ORDERED: MORPHINE SULFATE 10 MG/ML INJ IV ONE (23:01)
[2019-09-17] MEDS ORDERED: HYDRALAZINE HCL 25 MG TABLET PO ONE (00:13)
[2019-09-17] MEDS ORDERED: GLIPIZIDE XL 5 MG TAB.ER.24 PO ONE ×2 (00:14→00:31)
[2019-09-17] MEDS ORDERED: MORPHINE SULFATE 10 MG/ML INJ IV PRN (01:12)
[2019-09-17 02:22] VITALS: BP 143/97
== END 2019-09-17 03:04 | disposition home or self-care (01) ==
LOC: ER 18:34
DX: M54.42 Lumbago with sciatica, left side (principal); E11.65 Type 2 diabetes mellitus with hyperglycemia; I10 Essential (primary) hypertension; M54.9 Dorsalgia, unspecified; R20.0 Anesthesia of skin; G89.29 Other chronic pain; R63.1 Polydipsia; R35.0 Frequency of micturition; Z88.0 Allergy status to penicillin; Z79.899 Other long term (current) drug therapy
CPT/HCPCS: 93005; 96376; 99284; 96361; 96374; 36415; 82962; 83930; 85025; 80053; 81001; 80307; 82803; 72131; 93010; J2270 ×2; J1815; J7030 ×2

== ENCOUNTER 2019-12-29 07:23 | Emergency (ER) | payer SELFPAY ==
--- NOTE | 2019-12-29 10:01 | RADIOLOGY REPORT (SQ) ---
EXAM DESCRIPTION: CHEST SINGLE VIEW IMAGES COMPLETED DATE/TIME: 12/29/2019 9:45 am REASON FOR STUDY: SOB COMPARISON: None. EXAM PARAMETERS: NUMBER OF VIEWS: One view. TECHNIQUE: An AP view of the chest was obtained. RADIATION DOSE: NA LIMITATIONS: None. FINDINGS: LUNGS AND PLEURA: Low inspiratory lung volumes and bibasilar atelectasis. There is no con solidation, sizeable pleural effusion or pneumothorax. MEDIASTINUM AND HILAR STRUCTURES: No mediastinal or hilar contour abnormality. HEART AND VASCULAR STRUCTURES: The cardiac silhouette is enlarged. BONES: No acute findings. HARDWARE: None in the chest. OTHER: No other finding. IMPRESSION: Low inspiratory lung volumes, cardiomegaly and bibasilar atelectasis. TECHNICAL DOCUMENTATION: JOB ID: [id number] 2010 [employer]- All Rights Reserved Reading location - IP/workstation name: [email or web address]
[2019-12-29 10:12] LABS: HEMATOCRIT 38.4 % (37.9-51.0); HEMOGLOBIN 13.1 g/dL (13.5-17.0); MEAN CORPUSCULAR HEMOGLOBIN 29.7 pg (27.0-33.4); MEAN CORPUSCULAR VOLUME 87 fl (80-97); PLATELET COUNT 313 10^3/uL (150-450); RED BLOOD COUNT 4.41 10^6/uL (4.35-5.55); RED CELL DISTRIBUTION WIDTH 13.9 % (11.5-14.0); WHITE BLOOD COUNT 14.4 10^3/uL (4.0-10.5)
[2019-12-29 10:28] LABS: ABSOLUTE LYMPHOCYTES# (MANUAL) 3.3 10^3/uL (0.5-4.7); ABSOLUTE MONOCYTES # (MANUAL) 0.7 10^3/uL (0.1-1.4); BASOPHILS % (MANUAL) 0 % (0-2); EOSINOPHILS % (MANUAL) 0 % (0-6); LYMPHOCYTES % (MANUAL) 23 % (13-45); MONOCYTES % (MANUAL) 5 % (3-13); SEGMENTED NEUTROPHILS % (MAN) 72 % (42-78); TOTAL CELLS COUNTED 100
[2019-12-29 10:30] LABS: ANISOCYTOSIS SLIGHT; PLATELET COMMENT ADEQUATE; POLYCHROMASIA SLIGHT
[2019-12-29 10:34] LABS: ALBUMIN 3.2 g/dL (3.5-5.0); ALKALINE PHOSPHATASE 113 U/L (38-126); ANION GAP 10 (5-19); ASPARTATE AMINO TRANSFERASE 140 U/L (17-59); BILIRUBIN,DIRECT 0.4 mg/dL (0.0-0.4); BILIRUBIN,TOTAL 0.6 mg/dL (0.2-1.3); BLOOD UREA NITROGEN 13 mg/dL (7-20); CALCIUM 8.8 mg/dL (8.4-10.2); CARBON DIOXIDE 20 mmol/L (22-30); CHLORIDE 104 mmol/L (98-107); GLUCOSE 321 mg/dL (75-110); POTASSIUM 4.3 mmol/L (3.6-5.0); TOTAL PROTEIN 6.6 g/dL (6.3-8.2)
--- NOTE | 2019-12-29 12:24 | ER Document Report ---
Entered by MARIO ALBERTO BABB SCRIBE 12/29/19 1114 Acting as scribe for:PRASAD JENSEN MD ED Respiratory Problem - General Chief Complaint: Shortness Of Breath Stated Complaint: SHORT OF BREATH Time Seen by Provider: 12/29/19 10:15 Primary Care Provider: MIREILLE SHAH PA-C [Primary Care Provider] - Follow up as needed Mode of Arrival: Ambulatory Information source: Patient Notes: This 39 year old male patient presents to the emergency department today with complaints of "shortness of breath for a few days". Patient mentions that he was recently diagnosed with rheumatoid arthritis and was started on Celebrex and he noticed on the side of the bottle that shortness of breath can be a side effect of Celebrex. He is hypertensive here and mentions some noncompliance including that he did not take his medicine this morning "because he did not eat". He denies a cough or fever. TRAVEL OUTSIDE OF THE [place] IN LAST 30 DAYS: No - Related Data Allergies/Adverse Reactions: Penicillins Allergy (Unknown, Verified 06/29/18 09:26) Past Medical History - General Information source: Patient - Social History Smoking Status: Unknown if Ever Smoked Family History: Reviewed & Not Pertinent Patient has homicidal ideation: No - Past Medical History Cardiac Medical History: Reports: Hx Hypertension Endocrine Medical History: Reports: Hx Diabetes Mellitus Type 2 Musculoskeletal Medical History: Reports Hx Arthritis, Reports Hx Muscle Spasm Past Surgical History: Reports: Hx Orthopedic Surgery - R Arm - Immunizations Hx Diphtheria, Pertussis, Tetanus Vaccination: Yes Review of Systems - Review of Systems Constitutional: denies: Fever EENT: No symptoms reported Cardiovascular: No symptoms reported Respiratory: See HPI, Short of breath. denies: Cough Gastrointestinal: No symptoms reported Genitourinary: No symptoms reported Male Genitourinary: No symptoms reported Musculoskeletal: No symptoms reported Skin: No symptoms reported Hematologic/Lymphatic: No symptoms reported Neurological/Psychological: No symptoms reported -: Yes All other systems reviewed and negative Physical Exam - Vital signs Vitals: Temp Pulse Resp BP Pulse Ox 98.3 F 115 H 18 158/107 H 98 12/29/19 07:57 12/29/19 07:57 12/29/19 07:57 12/29/19 07:57 12/29/19 07:57 - Notes Notes: Physical Exam: General: Alert, appears well. HEENT: Normocephalic. Atraumatic. PERRL. Extraocular movements intact. Oropharynx clear. Neck: Supple. Non-tender. Respiratory: Mild respiratory distress, mildly tachypneic, saturating 99% on room air. Cardiovascular: Regular rate and rhythm. Abdominal: Morbidly obese. Non-tender. No distension. Normal Bowel Sounds. Back: No gross abnormalities. Extremities: Moves all four extremities. Upper extremities: Normal inspection. Normal ROM. Lower extremities: Normal inspection. No edema. Normal ROM. Neurological: Normal cognition. AAOx4. Normal speech. Psychological: Normal affect. Normal Mood. Skin: Warm. Dry. Normal color. Course - Re-evaluation Re-evalutation: 12/29/19 12:46 I spoke at length with the patient about his health issues and medications. He has no clue what he takes at this time. He states his doctors keep changing his medications. Reviewing the pharmacy records that are available he last filled glipizide 10 mg, amlodipine 10 mg, and lisinopril HCTZ on 09/20/2019 and got a 30-day supply. He has not filled any of those medicine since then. He has filled a prescription for Celebrex recently. He claims he cannot afford his medicines because they prescribed medicine that cost him several hundred dollars. He has not been able to work since August because of his back pain. He does describe epidural injections in his back in the past that have helped. 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 He further states that he did not take any of his medications this morning and is very vague about whether or not he has been taking them at all. He does not check his blood sugars. He states he is just been too preoccupied and too much going on in his life. 12/29/19 15:41 The patient's urinalysis shows a specific gravity 1.039 with protein greater than 500 and glucose greater than 500. Patient's hemoglobin A1c was 12.0. His blood pressure is now down after doses of IV Lopressor. He states he does have all his medications at home he just did not take them today. He will be given copies of his lab work, encouraged to take his medications every day, check his blood pressure and blood sugars every day, and to follow-up with his primary care provider in the next week to review his most recent lab work. His pulse oximetry readings have remained between 95 and 98% on room air the entire time he is here. 12/29/19 15:46 The patient was evaluated during the global COVID-19 pandemic and that diagnosis was suspected/considered upon their initial presentation. Their evaluation, t reatment and testing was consistent with current guidelines for patients who present with complaints or symptoms that may be related to COVID-19. 12/29/19 17:38 CTA chest shows moderate right pleural effusion with a smaller left pleural effusion. Left apical subpleural groundglass nodule, left upper lobe groundglass nodule, right upper lobe groundglass nodule, additional areas of groundglass opacification seen predominantly in the upper lobes but also peripherally in the lower lobes. These areas may suggest atypical infectious/inflammatory process and cannot entirely exclude neoplasm. There are atelectatic changes in the lung bases. All of the patient's radiographic and laboratory findings were discussed at length with the patient. He will be put on doxycycline as these findings sug gest atypical infection, however he does have a history of rheumatoid arthritis, and his ESR is 114(which would be high for infectious inflammatory process in the lungs, but not a rheumatoid process). - Vital Signs Vital signs: Temp Pulse Resp BP Pulse Ox 98.3 F 113 H 20 127/87 H 97 12/29/19 09:39 12/29/19 09:39 12/29/19 16:01 12/29/19 16:01 12/29/19 16:01 - Laboratory Result Diagrams: 12/29/19 09:38 12/29/19 09:38 Laboratory results interpreted by me: 12/29/19 12/29/19 12/29/19 09:38 09:38 09:38 WBC 14.4 H Hgb 13.1 L Abs Neuts (Manual) 10.4 H ESR D-Dimer Sodium 134.1 L Carbon Dioxide 20 L Glucose 321 H Hemoglobin A1c % 12.0 H AST 140 H C-Reactive Protein NT-Pro-B Natriuret Pep Albumin 3.2 L Urine Protein Urine Glucose (UA) Urine Ketones Urine Blood Urine Ascorbic Acid 12/29/19 12/29/19 12/29/19 09:38 09:38 09:38 WBC Hgb Abs Neuts (Manual) ESR 115 H D-Dimer 0.63 H Sodium Carbon Dioxide Glucose Hemoglobin A1c % AST C-Reactive Protein 14.1 H NT-Pro-B Natriuret Pep Albumin Urine Protein Urine Glucose (UA) Urine Ketones Urine Blood Urine Ascorbic Acid 12/29/19 12/29/19 09:38 14:21 WBC Hgb Abs Neuts (Manual) ESR D-Dimer Sodium Carbon Dioxide Glucose Hemoglobin A1c % AST C-Reactive Protein NT-Pro-B Natriuret Pep 3050 H Albumin Urine Protein >=500 H Urine Glucose (UA) >=500 H Urine Ketones TRACE H Urine Blood SMALL H Urine Ascorbic Acid 20 H - Diagnostic Test Radiology reviewed: Image reviewed, Reports reviewed - Chest x-ray shows low inspiratory lung volumes, cardiomegaly, bibasilar atelectasis. - EKG Interpretation by [place] EKG shows normal: Sinus rhythm, [place]. abnormal: Intervals - Borderline prolonged QT interval, QRS Complexes - Borderline R wave progression in the anterior leads, ST-T Waves - Lateral T wave abnormalities Rate: Tachycardia - 113 Discharge - Discharge Clinical Impression: Shortness of breath, Poorly controlled diabetes mellitus, Encounter for laboratory testing for COVID-19 virus, Pleural effusion, bilateral, Cardiomegaly, Diffuse pulmonary opacifications High blood pressure Qualifiers: Hypertension type: unspecified Qualified Code(s): I10 - Essential (primary) hypertension Rheumatoid arthritis Qualifiers: Rheumatoid arthritis location: multiple sites Rheumatoid factor presence: unspecified presence Qualified Code(s): M06.9 - Rheumatoid arthritis, unspecified Condition: Stable Disposition: HOME, SELF-CARE Instructions: COVID-19 Guidance for Persons Under Investigation Additional Instructions: Dyspnea, Nonspecific You were evaluated for shortness of breath, or dyspnea. Dyspnea has many causes, and some are more serious than others. Sometimes it's impossible to diagnose the cause of dyspnea with the tests that are available on an emergency basis. Based on our evaluation today, you do not need hospitalization now. We found no evidence of pneumonia, collapsed lung, blood clots in the lung, tumors, or heart failure. Causes of non-specific dyspnea can include asthma or bronchospasm, hyperventilation, emotional distress, heart disease, emphysema, fibrosis of the lung, and stiffness of the chest wall. In healthy individuals with a single episode, it's sometimes reasonable to do nothing but wait to see if the problem occurs again. Additional tests used to evaluate dyspnea can include cardiac stress testing, echocardiography, pulmonary function testing, CAT scan of the chest, bronchoscopy or pulmonary biopsy. Return if shortness of breath persists or worsens, or if you develop chest pain, fever, cough, confusion, or fainting. Your evaluation today suggest that you may have an atypical pneumonia developing. You were prescribed doxycycline antibiotic to treat this. There is evidence of significant inflammation which could be due to a rheumatoid arthritis flareup. Your chest x-ray and CT scan also showed you have an enlarged heart and bilateral pleural effusions, which is fluid around the lungs, but not in the lung. Your blood sugars and blood pressure are poorly controlled and puts you at risk of significant long-term complications. Your urine analysis shows that your kidneys are starting to become compromised. You were tested for the coronavirus. You should self isolate at home until you get results of the COVID-19 testing. Be sure you take all of your medications as they are prescribed every day. Follow-up with your primary care provider next week, take copies of the lab work and the CT scan with you. Go to the Department of [employer] to start an application for Medicaid services in order to find out if you will qualify. RETURN TO THE EMERGENCY ROOM IF ANY NEW OR WORSENING SYMPTOMS. Prescriptions: Doxycycline Hyclate 100 mg PO BID #20 tablet. Referrals: MIREILLE SHAH P[facility] [Primary Care Provider] - Follow up as needed I personally performed the services described in the documentation, reviewed and edited the documentation which was dictated to the scribe in my presence, and it accurately records my words and actions.
[2019-12-29] MEDS ORDERED: METOPROLOL TARTRATE PF/INJ 5 MG/5 ML SDV IV ONE ×2 (12:42→13:23)
[2019-12-29 14:44] LABS: APPEARANCE,URINE SLIGHTLY-CLOUDY; BILIRUBIN,URINE NEGATIVE (NEGATIVE); COLOR,URINE YELLOW; GLUCOSE, URINE >=500 mg/dL (NEGATIVE); KETONES,URINE TRACE mg/dL (NEGATIVE); LEUKOCYTE ESTERASE,URINE NEGATIVE (NEGATIVE); NITRITE,URINE NEGATIVE (NEGATIVE); PROTEIN,URINE >=500 mg/dL (NEGATIVE); URINE SPECIFIC GRAVITY 1.039; UROBILINOGEN,URINE NEGATIVE mg/dL (<2.0)
--- NOTE | 2019-12-29 17:26 | RADIOLOGY REPORT (SQ) ---
EXAM DESCRIPTION: CTA CHEST IMAGES COMPLETED DATE/TIME: 12/29/2019 5:06 pm REASON FOR STUDY: Elevated d-dimer, dyspnea, tachycardia COMPARISON: None. TECHNIQUE: CT scan of the chest performed using helical scanning technique with dynamic intravenous contrast injection. Images reviewed with lung, soft tissue and bone windows. Reconstructed coronal and sagittal MPR images reviewed. Additional 3 dimensional post-processing performed to develop Maximal Intensity Projection images (SD P). All images stored on PACS. All CT scanners at this facility use dose modulation, iterative reconstruction, and/or weight based d osing when appropriate to reduce radiation dose to as low as reasonably achievable (ALARA). [facility]: Dose Right [facility]: CareDose [facility]: Dose Right [facility]: Teradose 4D [facility]: Bright Things CONTRAST TYPE AND DOSE: contrast/concentration: Isovue 350.00 mmol/ml; Total Contrast Delivered: 75. 0 ml; Total Saline Delivered: 73.0 ml Contrast bolus adequate for pulmonary arteries and aorta. RENAL FUNCTION: BUN 13 creatinine 1.1 RADIATION DOSE: CT Rad equipment meets quality standard of care and radiation dose reduction techniq ues were employed. CTDIvol: 9.9 - 34.3 mGy. DLP: 1318 mGy-cm. . LIMITATIONS: None. FINDINGS: LUNGS AND PLEURA: Moderate right pleural effusion. Smaller left pleural effusion. Subple ural left apical ground-glass nodule measuring 8.6 x 14.4 mm. Left upper lobe ground-glass nodule me asuring 16.3 x 27.7 mm. See image 32 series 4. Right upper lobe ground-glass nodule on image 37 parviz suring 9.5 mm in largest diameter. Additional areas of ground-glass opacification are seen predomina ntly in the upper lobes but also peripherally in the lower lobes. AORTA AND GREAT VESSELS: No aneurysm. No dissection. HEART: No pericardial effusion. No significant coronary artery calcifications. PULMONARY ARTERIES: No emboli visualized in the main pulmonary arteries or the segmental branches. HILAR AND MEDIASTINAL STRUCTURES: There are several nonspecific mediastinal nodes. The largest is pr etracheal and measures 13.6 mm. HARDWARE: None in the chest. UPPER ABDOMEN: No significant findings. Limited exam. THYROID AND OTHER SOFT TISSUES: No masses. No adenopathy. BONES: No acute or significant finding. 3D MIPS: Confirm above findings. OTHER: No other significant finding. IMPRESSION: 1. There are no pulmonary emboli. There is no aortic aneurysm or dissection. 2. There are multiple areas of ground-glass opacification predominantly in the upper lobes as descri bed. These may suggest an atypical infectious/ inflammatory process. Cannot entirely exclude neopla sm. Correlate clinically. 3. Bilateral pleural effusions. There appear to be atelectatic changes in the lung bases. COMMENT: Quality ID # [id number]: Final reports with documentation of one or more dose reduction techniques (e.g., Automated exposure control, adjustment of the mA and/or kV according to patient size, use of iterative reconstruction technique) TECHNICAL DOCUMENTATION: JOB ID: [id number] 2010 [employer]- All Rights Reserved Reading location - IP/workstation name: [email or web address]
[2019-12-29] MEDS ORDERED: DOXYCYCLINE HYCLATE 100 MG TABLET PO ONE (17:46)
[2019-12-29 18:34] VITALS: BP 148/108
--- NOTE | 2019-12-29 21:02 | EKG REPORT ---
SEVERITY:- ABNORMAL ECG - SINUS TACHYCARDIA BORDERLINE R WAVE PROGRESSION, ANTERIOR LEADS ABNORMAL T, CONSIDER ISCHEMIA, LATERAL LEADS BORDERLINE PROLONGED QT INTERVAL : Confirmed by: Courtney Magdaleno 29-Dec-2019 21:00:16
== END 2019-12-29 18:38 | disposition home or self-care (01) ==
LOC: ER 07:23
DX: J90 Pleural effusion, not elsewhere classified (principal); J98.11 Atelectasis; I11.9 Hypertensive heart disease without heart failure; R06.02 Shortness of breath; R91.8 Other nonspecific abnormal finding of lung field; E11.65 Type 2 diabetes mellitus with hyperglycemia; R00.0 Tachycardia, unspecified; M06.9 Rheumatoid arthritis, unspecified; Z91.14 Patient's other noncompliance with medication regimen; Z88.0 Allergy status to penicillin; Z20.828 Contact with and (suspected) exposure to other viral communicable diseases
CPT/HCPCS: 93005; 96376; 99285; 96374; 36415; 82728; 85025; 85652; 87635; 86140; 80053; 81001; 83036; 85379; 83880; 71045; 71275; 93010; J3490; C9803